=== PATIENT | male | born 1990 | race African-American/Black ===

== ENCOUNTER 2018-09-10 17:22 | Emergency (ER) | payer SELFPAY ==
[~2018-09-10] VITALS: Ht 175.3 cm; Wt 113.6 kg
[2018-09-10] MEDS ORDERED: SODIUM CHLORIDE 0.9% 1,000 ML IV ONE ×2 (17:45)
[2018-09-10 18:20] LABS: BASOPHILS % (AUTO) 0.2 % (0.0-2.0); EOSINOPHILS % (AUTO) 0.1 % (1.0-6.0); HEMOGLOBIN 14.7 g/dL (13.5-17.5); LYMPHOCYTES # (AUTO) 0.8 K/uL (1.0-4.8); MEAN CORPUSCULAR HEMOGLOBIN 26.2 pg (26.0-34.0); MEAN CORPUSCULAR HGB CONC 32.1 G/dL (31.0-37.0); MEAN CORPUSCULAR VOLUME 82 fL (80-100); MONOCYTES # (AUTO) 1.2 K/uL (0.1-1.0); MONOCYTES % (AUTO) 8.2 % (2.0-9.0); PLATELET COUNT (AUTO) 174 K/uL (150-450); RED BLOOD CELL COUNT(AUTO) 5.63 MIL/uL (4.50-5.90); RED CELL DISTRIBUTION WIDTH 14.9 % (11.5-14.5)
[2018-09-10 18:21] LABS: NEUTROPHILS % (AUTO) 86.5 % (40.0-70.0)
[2018-09-10 18:27] LABS: ANION GAP 11 mmol/L (8-16); CALCIUM, TOTAL 10.6 mg/dL (8.8-10.5); CARBON DIOXIDE 28 mmol/L (22-29); CHLORIDE 102 mmol/L (98-107); CREATININE 1.18 mg/dL (0.60-1.30); GLOMERULAR FILTR. RATE CALC > 60 mL/min (>60); GLUCOSE,RANDOM 84 mg/dL (70-110); POTASSIUM 3.5 mmol/L (3.5-5.1); SODIUM SERUM 141 mmol/L (136-145); UREA NITROGEN, BLOOD 18 mg/dL (7-18)
[2018-09-10 18:50] LABS: ALANINE AMINOTRANSFERASE 84 U/L (12-78); ALBUMIN 4.6 g/dL (3.4-5.0); ALKALINE PHOSPHATASE 76 U/L (46-116); ASPARTATE AMINOTRANSFERASE 30 U/L (15-37); BILIRUBIN,TOTAL 0.6 mg/dL (0.1-1.0); CREATINE KINASE, TOTAL ONLY 573 U/L (39-308); TOTAL PROTEIN, SERUM 8.9 g/dL (6.4-8.2)
[2018-09-10 20:30] VITALS: BP 127/71
== END 2018-09-10 20:54 | disposition home or self-care (01) ==
LOC: EMS 17:24
DX: R55 Syncope and collapse (principal); E86.0 Dehydration; F12.90 Cannabis use, unspecified, uncomplicated
CPT/HCPCS: 36415; 71046; 80053; 81002; 82550; 83735; 84484; 85025; 93005; 96360; 99284; G0480; J7030